=== PATIENT | male | born 1955 | race Caucasian/White ===

== ENCOUNTER → 2019-05-20 | Outpatient (CLI) | payer OTHER ==
[~2019-05-20] VITALS: Ht 182.9 cm; Wt 103.4 kg
[~2019-05-20] MED LIST: FISH OIL 1,0001 EAC9 PO; GLUCOSAMINE1000 MG PO; MULTIVITAMINS1 EAC7 PO; PRILOSEC OTC20 MG PO; VITAMIN B-12100 MC1 PO; VITAMIN C500 M2 PO
--- NOTE | 2019-05-22 17:06 | PATH ---
[facility] [address] [place] [address] PATHOLOGY RPT PROCEDURE Name: CHELSEY CONROY Room #: REG CLI M.R.#: [id number] Admission: 05/20/19 Date of : 59 Discharge: Report #: [id number] Path Case #: [id number] [facility] Accession Number: [id number] . 01 Material submitted: . colon - POLYP AT SIGMOID COLON. Modifiers: sigmoid . 01 Clinical history: . Colon polyp, diverticulosis . 02 Diagnosis: Polyp, sigmoid, endoscopic biopsy: - Tubular adenoma. - Negative for high grade dysplasia. (IUV/db; 05/22/2019) LBQ 05/22/2019 1302 Local . 02 Electronically signed: . Penelope Corbin MD, Pathologist NPI- [id number] . 01 Gross description: . Received in formalin labeled "GuidoChelsey sainz, polyp at sigmoid colon," are two segments of marin-brown soft tissue measuring 0.3 x 0.3 x 0.2 cm and 0.4 x 0.2 x 0.1 cm in greatest dimensions. The specimen is submitted entirely in cassette A1. (DAC; 05/21/2019) XDC/XDC 05/21/2019 1438 Local . 02 Pathologist provided ICD-10: D12.5 . 02 CPT . 005783 Specimen Comment: Report sent to Performed at: 01 [facility] [address] [place] [address] [address], [place] [id number] MD Narciso Ballard MD Phone: [phone] Performed at: [address] [id number] MD Penelope Corbin MD Phone: [phone]
--- NOTE | 2019-05-27 09:30 | P ---
[facility] [place] [address] PROCEDURE REPORT Name: [facility] CON[facility]Y [id number]mission: 05/20/19 Attend Phys: Paulie Tan Discharge: Date of : 59 Report #: [id number] THIS REPORT FOR: //name// CC: Paulie Knox FAM unknown PROCEDURE PERFORMED: Colonoscopy with biopsies. HISTORY OF PRESENT ILLNESS: The patient is a 63-year-old male who presents today for routine screening colonoscopy. No previous history of colonoscopy. No family history of colon cancer. He denies any symptoms. DESCRIPTION OF PROCEDURE: The risks and benefits of the procedure were explained to the patient, those risks including but not limited to bleeding, perforation and the risk of sedation. He understood these risks and gave informed consent. Sedation was given using propofol per anesthesia. Next, a digital rectal exam was initially performed, which was normal. Next, using a standard Olympus colonoscope, the scope was placed in the patient's anus and advanced under direct vision to the cecum. The overall prep was excellent. The cecum and ileocecal valve were normal in appearance. The ascending, transverse and descending colon were normal. In the sigmoid colon, a 4 mm sessile polyp was noted. This was removed with cold forceps. Also noted in the sigmoid colon were several diverticula. No evidence of inflammation. The rectal mucosa was normal. On retroflexion, small to medium size internal hemorrhoids were noted. The scope was then withdrawn and the procedure terminated. The patient tolerated the procedure well. IMPRESSION: 1. Small sigmoid colon polyp. 2. Sigmoid diverticulosis. 3. Internal hemorrhoids. 4. Otherwise, normal colonoscopy. RECOMMENDATIONS: 1. Await biopsy results. 2. If polyp is hyperplastic, repeat in 10 years; if adenomatous polyp, repeat in 5 years. Thank you for allowing me to participate in his care. <ELECTRONICALLY SIGNED> By: Paulie Knox MD 05/27/19 0930 1038 0013 Paulie Knox MD /nt
== END | disposition home or self-care (01) ==
LOC: GI 08:26
DX: Z12.11 Encounter for screening for malignant neoplasm of colon (principal); D12.5 Benign neoplasm of sigmoid colon; K57.30 Diverticulosis of large intestine without perforation or abscess without bleeding; K64.8 Other hemorrhoids; K21.9 Gastro-esophageal reflux disease without esophagitis; Z98.890 Other specified postprocedural states; Z79.899 Other long term (current) drug therapy; Z87.891 Personal history of nicotine dependence
CPT/HCPCS: 62110; 62900